=== PATIENT | female | born 1935 | race Caucasian/White ===

== ENCOUNTER 2017-11-03 16:50 | Inpatient (IN) | payer MEDICARE, MEDICAID ==
[~2017-11-03] VITALS: Ht 165.1 cm; Wt 95.5 kg
[2017-11-03] MEDS ORDERED: normal saline 1000ML IV soln IV ONE (17:25)
[2017-11-03] MEDS ORDERED: CefTRIAXone 2gm/D5W 50ml 50 ML IV ONE (17:40)
[2017-11-03] MEDS ORDERED: azithromycin/NS 500mg/250ml 250 ML IV ONE (17:40)
[2017-11-03 17:55] LABS: BASOPHILS % (AUTO) 0 % (0-1); EOSINOPHILS % (AUTO) 0 % (0-6); HEMATOCRIT 36.9 % (35.0-45.0); HEMOGLOBIN 12.7 g/dl (12.0-16.0); LYMPHOCYTES # (AUTO) 0.7 X10'3 (1.1-4.8); LYMPHOCYTES % (AUTO) 4.4 % (21-51); MEAN CORPUSCULAR HEMOGLOBIN 30.6 PG (27.0-31.0); MEAN CORPUSCULAR HGB CONC 34.3 % (33.0-36.5); MEAN CORPUSCULAR VOLUME 89.1 FL (78-98); MEAN PLATELET VOLUME 8.9 FL (7.4-10.4); MONOCYTES # (AUTO) 1.3 X10'3 (0-0.9); MONOCYTES % (AUTO) 8.3 % (2-12); NEUTROPHILS # (AUTO) 14.1 X10'3 (1.8-7.7); NEUTROPHILS % (AUTO) 87.3 % (42-75); PLATELET COUNT 240 X10'3 (140-440); RED BLOOD COUNT 4.14 X10'6 (4.20-5.60); RED CELL DISTRIBUTION WIDTH 15.6 % (11.5-14.5); WHITE BLOOD COUNT 16.1 X10'3 (4.5-11.0)
[2017-11-03 18:05] LABS: PARTIAL THROMBOPLASTIN TIME 34 SECONDS (22-32); PROTHROMBIN TIME 10.6 SECONDS (9.0-12.0)
[2017-11-03 18:10] LABS: ALANINE AMINOTRANSFERASE 25 U/L (12-78); ALBUMIN 3.7 G/DL (3.4-5.0); ALKALINE PHOSPHATASE 91 IU/L (46-116); ANION GAP 11 (8-16); ASPARTATE AMINO TRANSFERASE 21 U/L (10-37); BILIRUBIN,TOTAL 0.5 MG/DL (0.1-1.0); BLOOD UREA NITROGEN 16 MG/DL (7-18); BUN/CREATININE RATIO 15.1 (6.6-38.0); CHLORIDE 101 MMOL/L (99-107); CREATININE 1.06 MG/DL (0.40-0.90); GLUCOSE 122 MG/DL (70-104); MAGNESIUM 1.4 MG/DL (1.5-2.4); POTASSIUM 4.2 MMOL/L (3.5-5.1); SODIUM 137 MMOL/L (135-145); TOTAL CARBON DIOXIDE 25.1 MMOL/L (24-32); TOTAL PROTEIN 7.5 G/DL (6.4-8.2); eGFR 50 ML/MIN
[2017-11-03 18:30] LABS: CLARITY,URINE CLEAR (Clear); COLOR,URINE YELLOW (Yellow); GLUCOSE, URINE NEGATIVE (Neg); KETONES,URINE TRACE mg/dl (Neg); LEUKOCYTE ESTERASE ,URINE MODERATE (Neg); NITRITES, URINE POSITIVE (Neg); OCCULT BLOOD,URINE NEGATIVE (Neg); PROTEIN,URINE TRACE mg/dl (Neg)
[2017-11-03 18:31] LABS: UA COLLECTION TYPE VOIDED
[2017-11-03 18:35] LABS: BACTERIA,URINE 4+ /HPF (Neg); RBC,URINE 0-2 /HPF (0-2); WBC,URINE 50-100 /HPF (0-4)
[2017-11-03 18:36] LABS: MUCUS STRANDS NONE SEEN /LPF (Neg); SQUAMOUS EPITHELIAL CELL,UR FEW /LPF (FEW)
[2017-11-03] MEDS ORDERED: oseltamivir phos 75mg capsule PO ONE (19:45)
[2017-11-03] MEDS ORDERED: AMOX-422 PO (19:46)
[2017-11-03] MEDS ORDERED: ONDA4TAB12 PO (19:46)
[2017-11-03] MEDS ORDERED: TAM75C PO (19:46)
[2017-11-03] MEDS ORDERED: ATOR20TA66 PO (20:06)
[2017-11-03] MEDS ORDERED: LEVO75TA PO (20:06)
[2017-11-03] MEDS ORDERED: SERT100T PO (20:06)
[2017-11-03] MEDS ORDERED: MONT10TA21 PO (20:06)
[2017-11-03] MEDS ORDERED: OMEP40CA37 PO (20:06)
[2017-11-03] MEDS ORDERED: TRAM50TA2 PO (20:06)
[2017-11-03] MEDS ORDERED: normal saline 1000ml 1,000 ML IV SCH (20:47)
[2017-11-03] MEDS ORDERED: acetaminophen 325mg tablet PO PRN (20:50)
[2017-11-03] MEDS ORDERED: ondansetron/PF 4mg/2ml inj IV PRN (20:50)
[2017-11-03] MEDS ORDERED: magnesium hydroxide 30ml (MOM) UD suspension PO PRN (20:50)
[2017-11-03] MEDS ORDERED: mag hydrox/Alum hydrox/simeth 30ml oral suspension PO PRN (20:50)
[2017-11-03] MEDS: traMADol 50MG tablet PO PRN (22:39)
[2017-11-04 00:25] VITALS: BP 103/58
[2017-11-04 06:24] LABS: BASOPHILS % (AUTO) 0 % (0-1); EOSINOPHILS # (AUTO) 0.2 X10'3 (0-0.9); EOSINOPHILS % (AUTO) 1.5 % (0-6); HEMATOCRIT 31.3 % (35.0-45.0); HEMOGLOBIN 10.6 g/dl (12.0-16.0); LYMPHOCYTES # (AUTO) 1.2 X10'3 (1.1-4.8); LYMPHOCYTES % (AUTO) 7.9 % (21-51); MEAN CORPUSCULAR HEMOGLOBIN 30.6 PG (27.0-31.0); MEAN CORPUSCULAR HGB CONC 33.9 % (33.0-36.5); MEAN CORPUSCULAR VOLUME 90.2 FL (78-98); MEAN PLATELET VOLUME 9.4 FL (7.4-10.4); MONOCYTES # (AUTO) 1.5 X10'3 (0-0.9); MONOCYTES % (AUTO) 9.8 % (2-12); NEUTROPHILS # (AUTO) 12.2 X10'3 (1.8-7.7); NEUTROPHILS % (AUTO) 80.8 % (42-75); PLATELET COUNT 216 X10'3 (140-440); RED BLOOD COUNT 3.47 X10'6 (4.20-5.60); RED CELL DISTRIBUTION WIDTH 15.2 % (11.5-14.5); WHITE BLOOD COUNT 15.1 X10'3 (4.5-11.0)
[2017-11-04 06:40] LABS: ALANINE AMINOTRANSFERASE 19 U/L (12-78); ALBUMIN 2.9 G/DL (3.4-5.0); ALBUMIN/GLOBULIN RATIO 0.9 (1.1-1.5); ALKALINE PHOSPHATASE 65 IU/L (46-116); ANION GAP 7 (8-16); ASPARTATE AMINO TRANSFERASE 18 U/L (10-37); BILIRUBIN,TOTAL 0.4 MG/DL (0.1-1.0); BLOOD UREA NITROGEN 14 MG/DL (7-18); BUN/CREATININE RATIO 16.7 (6.6-38.0); CALCIUM 8.3 MG/DL (8.5-10.1); CHLORIDE 105 MMOL/L (99-107); CREATININE 0.84 MG/DL (0.40-0.90); GLUCOSE 120 MG/DL (70-104); POTASSIUM 3.8 MMOL/L (3.5-5.1); SODIUM 137 MMOL/L (135-145); TOTAL CARBON DIOXIDE 24.8 MMOL/L (24-32); TOTAL PROTEIN 6.1 G/DL (6.4-8.2); eGFR 65 ML/MIN
[2017-11-04 07:00] VITALS: BP 117/60
[2017-11-04] MEDS: montelukast 10mg tablet PO SCH (08:33)
[2017-11-04] MEDS: pantoprazole 40mg Tablet.DR PO SCH (08:34)
[2017-11-04] MEDS: levoTHYROXINE 75mcg tablet PO SCH (08:34)
[2017-11-04] MEDS: sertraline 50mg tablet PO SCH (08:34)
[2017-11-04] MEDS: atorvastatin 20mg tablet PO SCH (08:34)
[2017-11-04] MEDS: oseltamivir phos 75mg capsule PO SCH ×2 (08:36→20:49)
[2017-11-04] MEDS: heparin, porcine 5000 units/ml vial SQ SCH ×2 (08:36→20:51)
[2017-11-04] MEDS: CefTRIAXone/D5W-Rocephin 1gm 50 ML IV SCH (08:36)
[2017-11-04] MEDS: traMADol 50MG tablet PO PRN ×3 (08:45→21:24)
[2017-11-04 11:00] VITALS: BP 129/50
[2017-11-04 18:45] VITALS: BP 133/67
[2017-11-04 23:00] VITALS: BP 131/56
[2017-11-05 04:43] LABS: BASOPHILS % (AUTO) 0.1 % (0-1); EOSINOPHILS % (AUTO) 0 % (0-6); HEMATOCRIT 33.6 % (35.0-45.0); HEMOGLOBIN 11.3 g/dl (12.0-16.0); LYMPHOCYTES # (AUTO) 1.2 X10'3 (1.1-4.8); LYMPHOCYTES % (AUTO) 13.4 % (21-51); MEAN CORPUSCULAR HEMOGLOBIN 30.6 PG (27.0-31.0); MEAN CORPUSCULAR HGB CONC 33.7 % (33.0-36.5); MEAN CORPUSCULAR VOLUME 90.8 FL (78-98); MEAN PLATELET VOLUME 8.6 FL (7.4-10.4); MONOCYTES % (AUTO) 11.4 % (2-12); NEUTROPHILS # (AUTO) 6.7 X10'3 (1.8-7.7); NEUTROPHILS % (AUTO) 75.1 % (42-75); PLATELET COUNT 236 X10'3 (140-440); RED CELL DISTRIBUTION WIDTH 15.4 % (11.5-14.5); WHITE BLOOD COUNT 8.9 X10'3 (4.5-11.0)
[2017-11-05 05:02] LABS: ALANINE AMINOTRANSFERASE 23 U/L (12-78); ALBUMIN 2.9 G/DL (3.4-5.0); ALBUMIN/GLOBULIN RATIO 0.8 (1.1-1.5); ALKALINE PHOSPHATASE 70 IU/L (46-116); ANION GAP 10 (8-16); ASPARTATE AMINO TRANSFERASE 22 U/L (10-37); BILIRUBIN,TOTAL 0.3 MG/DL (0.1-1.0); BLOOD UREA NITROGEN 13 MG/DL (7-18); BUN/CREATININE RATIO 16.9 (6.6-38.0); CALCIUM 8.8 MG/DL (8.5-10.1); CHLORIDE 104 MMOL/L (99-107); CREATININE 0.77 MG/DL (0.40-0.90); GLUCOSE 113 MG/DL (70-104); POTASSIUM 3.8 MMOL/L (3.5-5.1); SODIUM 140 MMOL/L (135-145); TOTAL PROTEIN 6.7 G/DL (6.4-8.2); eGFR 72 ML/MIN
[2017-11-05 08:00] VITALS: BP 126/57
[2017-11-05] MEDS: CefTRIAXone/D5W-Rocephin 1gm 50 ML IV SCH (09:07)
[2017-11-05] MEDS: oseltamivir phos 75mg capsule PO SCH ×2 (09:07→19:47)
[2017-11-05] MEDS: heparin, porcine 5000 units/ml vial SQ SCH ×2 (09:08→19:47)
[2017-11-05] MEDS: montelukast 10mg tablet PO SCH (09:08)
[2017-11-05] MEDS: sertraline 50mg tablet PO SCH (09:08)
[2017-11-05] MEDS: atorvastatin 20mg tablet PO SCH (09:08)
[2017-11-05] MEDS: pantoprazole 40mg Tablet.DR PO SCH (09:08)
[2017-11-05] MEDS: levoTHYROXINE 75mcg tablet PO SCH (09:08)
[2017-11-05] MEDS: traMADol 50MG tablet PO PRN ×3 (09:11→21:52)
[2017-11-05 11:00] VITALS: BP 118/69
[2017-11-05 19:00] VITALS: BP 132/64
[2017-11-05 23:30] VITALS: BP 132/72
[2017-11-06] MEDS: traMADol 50MG tablet PO PRN ×2 (04:36→15:20)
[2017-11-06 05:33] LABS: BASOPHILS % (AUTO) 0.2 % (0-1); EOSINOPHILS # (AUTO) 0.1 X10'3 (0-0.9); EOSINOPHILS % (AUTO) 2.1 % (0-6); HEMOGLOBIN 10.8 g/dl (12.0-16.0); LYMPHOCYTES # (AUTO) 1.3 X10'3 (1.1-4.8); LYMPHOCYTES % (AUTO) 22.5 % (21-51); MEAN CORPUSCULAR HEMOGLOBIN 30.6 PG (27.0-31.0); MEAN CORPUSCULAR HGB CONC 33.8 % (33.0-36.5); MEAN CORPUSCULAR VOLUME 90.6 FL (78-98); MEAN PLATELET VOLUME 9.5 FL (7.4-10.4); MONOCYTES # (AUTO) 0.8 X10'3 (0-0.9); MONOCYTES % (AUTO) 13.1 % (2-12); NEUTROPHILS # (AUTO) 3.7 X10'3 (1.8-7.7); NEUTROPHILS % (AUTO) 62.1 % (42-75); PLATELET COUNT 215 X10'3 (140-440); RED BLOOD COUNT 3.53 X10'6 (4.20-5.60); RED CELL DISTRIBUTION WIDTH 15.1 % (11.5-14.5); WHITE BLOOD COUNT 5.9 X10'3 (4.5-11.0)
[2017-11-06 05:53] LABS: ALANINE AMINOTRANSFERASE 20 U/L (12-78); ALBUMIN 2.7 G/DL (3.4-5.0); ALBUMIN/GLOBULIN RATIO 0.7 (1.1-1.5); ALKALINE PHOSPHATASE 68 IU/L (46-116); ANION GAP 9 (8-16); ASPARTATE AMINO TRANSFERASE 20 U/L (10-37); BILIRUBIN,TOTAL 0.3 MG/DL (0.1-1.0); BLOOD UREA NITROGEN 13 MG/DL (7-18); BUN/CREATININE RATIO 18.1 (6.6-38.0); CALCIUM 8.6 MG/DL (8.5-10.1); CHLORIDE 106 MMOL/L (99-107); CREATININE 0.72 MG/DL (0.40-0.90); GLUCOSE 107 MG/DL (70-104); POTASSIUM 3.7 MMOL/L (3.5-5.1); SODIUM 141 MMOL/L (135-145); TOTAL CARBON DIOXIDE 26.5 MMOL/L (24-32); TOTAL PROTEIN 6.5 G/DL (6.4-8.2); eGFR 78 ML/MIN
[2017-11-06 07:00] VITALS: BP 129/62
[2017-11-06] MEDS: heparin, porcine 5000 units/ml vial SQ SCH ×2 (08:17→19:27)
[2017-11-06] MEDS: CefTRIAXone/D5W-Rocephin 1gm 50 ML IV SCH (08:17)
[2017-11-06] MEDS: oseltamivir phos 75mg capsule PO SCH ×2 (08:18→19:26)
[2017-11-06] MEDS: pantoprazole 40mg Tablet.DR PO SCH (08:18)
[2017-11-06] MEDS: montelukast 10mg tablet PO SCH (08:18)
[2017-11-06] MEDS: sertraline 50mg tablet PO SCH (08:18)
[2017-11-06] MEDS: levoTHYROXINE 75mcg tablet PO SCH (08:18)
[2017-11-06] MEDS: atorvastatin 20mg tablet PO SCH (08:18)
[2017-11-06 12:19] VITALS: BP 127/64
[2017-11-06] MEDS: lactobacillus rhamnosus 10,000 MMU CELLS/CAPSULE PO SCH (19:26)
[2017-11-06 20:00] VITALS: BP 140/84
[2017-11-07] VITALS: BP 136/85
[2017-11-07] MEDS: traMADol 50MG tablet PO PRN ×2 (02:29→19:38)
[2017-11-07 05:08] LABS: BASOPHILS % (AUTO) 0.4 % (0-1); EOSINOPHILS # (AUTO) 0.2 X10'3 (0-0.9); EOSINOPHILS % (AUTO) 3.3 % (0-6); HEMATOCRIT 33.4 % (35.0-45.0); HEMOGLOBIN 11.3 g/dl (12.0-16.0); LYMPHOCYTES # (AUTO) 1.8 X10'3 (1.1-4.8); LYMPHOCYTES % (AUTO) 30.3 % (21-51); MEAN CORPUSCULAR HEMOGLOBIN 30.7 PG (27.0-31.0); MEAN CORPUSCULAR HGB CONC 33.8 % (33.0-36.5); MEAN CORPUSCULAR VOLUME 90.8 FL (78-98); MEAN PLATELET VOLUME 9.1 FL (7.4-10.4); MONOCYTES # (AUTO) 0.7 X10'3 (0-0.9); MONOCYTES % (AUTO) 12.3 % (2-12); NEUTROPHILS # (AUTO) 3.2 X10'3 (1.8-7.7); NEUTROPHILS % (AUTO) 53.7 % (42-75); PLATELET COUNT 256 X10'3 (140-440); RED BLOOD COUNT 3.68 X10'6 (4.20-5.60)
[2017-11-07 05:11] LABS: ALANINE AMINOTRANSFERASE 23 U/L (12-78); ALBUMIN 2.8 G/DL (3.4-5.0); ALBUMIN/GLOBULIN RATIO 0.7 (1.1-1.5); ALKALINE PHOSPHATASE 72 IU/L (46-116); ANION GAP 8 (8-16); ASPARTATE AMINO TRANSFERASE 20 U/L (10-37); BILIRUBIN,TOTAL 0.3 MG/DL (0.1-1.0); BLOOD UREA NITROGEN 13 MG/DL (7-18); BUN/CREATININE RATIO 19.1 (6.6-38.0); CALCIUM 8.9 MG/DL (8.5-10.1); CHLORIDE 105 MMOL/L (99-107); CREATININE 0.68 MG/DL (0.40-0.90); GLUCOSE 107 MG/DL (70-104); SODIUM 142 MMOL/L (135-145); TOTAL CARBON DIOXIDE 29.2 MMOL/L (24-32); TOTAL PROTEIN 6.6 G/DL (6.4-8.2); eGFR 83 ML/MIN
[2017-11-07 07:35] VITALS: BP 160/81
[2017-11-07] MEDS: oseltamivir phos 75mg capsule PO SCH ×2 (09:53→20:29)
[2017-11-07] MEDS: levoTHYROXINE 75mcg tablet PO SCH (09:53)
[2017-11-07] MEDS: lactobacillus rhamnosus 10,000 MMU CELLS/CAPSULE PO SCH ×2 (09:53→20:29)
[2017-11-07] MEDS: sertraline 50mg tablet PO SCH (09:54)
[2017-11-07] MEDS: atorvastatin 20mg tablet PO SCH (09:54)
[2017-11-07] MEDS: montelukast 10mg tablet PO SCH (09:55)
[2017-11-07] MEDS: pantoprazole 40mg Tablet.DR PO SCH (09:55)
[2017-11-07] MEDS: heparin, porcine 5000 units/ml vial SQ SCH ×2 (09:57→20:31)
[2017-11-07] MEDS: CefTRIAXone/D5W-Rocephin 1gm 50 ML IV SCH (09:58)
[2017-11-07 11:54] VITALS: BP 160/76
[2017-11-07 20:00] VITALS: BP 165/77
[2017-11-07] MEDS ORDERED: cyclobenzaprine 10mg tablet PO ONE (22:40)
[2017-11-08] VITALS: BP 146/81
[2017-11-08 05:37] LABS: BASOPHILS % (AUTO) 0.3 % (0-1); EOSINOPHILS # (AUTO) 0.2 X10'3 (0-0.9); EOSINOPHILS % (AUTO) 2.5 % (0-6); HEMATOCRIT 36.5 % (35.0-45.0); HEMOGLOBIN 12.5 g/dl (12.0-16.0); LYMPHOCYTES # (AUTO) 2.4 X10'3 (1.1-4.8); LYMPHOCYTES % (AUTO) 28.5 % (21-51); MEAN CORPUSCULAR HEMOGLOBIN 30.9 PG (27.0-31.0); MEAN CORPUSCULAR HGB CONC 34.1 % (33.0-36.5); MEAN CORPUSCULAR VOLUME 90.6 FL (78-98); MEAN PLATELET VOLUME 8.2 FL (7.4-10.4); MONOCYTES # (AUTO) 0.9 X10'3 (0-0.9); MONOCYTES % (AUTO) 11.3 % (2-12); NEUTROPHILS # (AUTO) 4.8 X10'3 (1.8-7.7); NEUTROPHILS % (AUTO) 57.4 % (42-75); PLATELET COUNT 366 X10'3 (140-440); RED BLOOD COUNT 4.03 X10'6 (4.20-5.60); RED CELL DISTRIBUTION WIDTH 15.2 % (11.5-14.5); WHITE BLOOD COUNT 8.3 X10'3 (4.5-11.0)
[2017-11-08 05:57] LABS: ALANINE AMINOTRANSFERASE 25 U/L (12-78); ALBUMIN 3.2 G/DL (3.4-5.0); ALBUMIN/GLOBULIN RATIO 0.8 (1.1-1.5); ALKALINE PHOSPHATASE 79 IU/L (46-116); ANION GAP 9 (8-16); ASPARTATE AMINO TRANSFERASE 17 U/L (10-37); BILIRUBIN,TOTAL 0.3 MG/DL (0.1-1.0); BLOOD UREA NITROGEN 13 MG/DL (7-18); BUN/CREATININE RATIO 18.6 (6.6-38.0); CALCIUM 9.5 MG/DL (8.5-10.1); CHLORIDE 104 MMOL/L (99-107); GLUCOSE 107 MG/DL (70-104); POTASSIUM 3.8 MMOL/L (3.5-5.1); SODIUM 142 MMOL/L (135-145); TOTAL CARBON DIOXIDE 29.2 MMOL/L (24-32); TOTAL PROTEIN 7.4 G/DL (6.4-8.2); eGFR 81 ML/MIN
[2017-11-08 08:06] VITALS: BP 160/92
[2017-11-08] MEDS: atorvastatin 20mg tablet PO SCH (09:56)
[2017-11-08] MEDS: pantoprazole 40mg Tablet.DR PO SCH (09:56)
[2017-11-08] MEDS: traMADol 50MG tablet PO PRN ×2 (09:56→20:23)
[2017-11-08] MEDS: levoTHYROXINE 75mcg tablet PO SCH (09:56)
[2017-11-08] MEDS: lactobacillus rhamnosus 10,000 MMU CELLS/CAPSULE PO SCH ×2 (09:56→20:23)
[2017-11-08] MEDS: sertraline 50mg tablet PO SCH (09:57)
[2017-11-08] MEDS: oseltamivir phos 75mg capsule PO SCH ×2 (09:57→20:23)
[2017-11-08] MEDS: montelukast 10mg tablet PO SCH (09:57)
[2017-11-08] MEDS: CefTRIAXone/D5W-Rocephin 1gm 50 ML IV SCH (09:58)
[2017-11-08] MEDS: heparin, porcine 5000 units/ml vial SQ SCH ×2 (09:58→20:26)
[2017-11-08 11:18] VITALS: BP 171/89
[2017-11-08 20:00] VITALS: BP 126/52
[2017-11-09] VITALS: BP 122/56
[2017-11-09 07:08] VITALS: BP 147/73
[2017-11-09] MEDS: heparin, porcine 5000 units/ml vial SQ SCH (07:49)
[2017-11-09] MEDS: lactobacillus rhamnosus 10,000 MMU CELLS/CAPSULE PO SCH (07:49)
[2017-11-09] MEDS: pantoprazole 40mg Tablet.DR PO SCH (07:49)
[2017-11-09] MEDS: montelukast 10mg tablet PO SCH (07:49)
[2017-11-09] MEDS: CefTRIAXone/D5W-Rocephin 1gm 50 ML IV SCH (07:49)
[2017-11-09] MEDS: atorvastatin 20mg tablet PO SCH (07:49)
[2017-11-09] MEDS: sertraline 50mg tablet PO SCH (07:50)
[2017-11-09] MEDS: levoTHYROXINE 75mcg tablet PO SCH (07:51)
== END 2017-11-09 15:00 | DRG 871 ==
LOC: ER 16:50 → ED HOLD 20:47 → SUR 3N 23:55
PROVIDERS: ADMIT Internal Medicine; ATTEND Emergency Medicine
DX: A41.9 Sepsis, unspecified organism (principal); J18.1 Lobar pneumonia, unspecified organism; J10.08 Influenza due to other identified influenza virus with other specified pneumonia; N39.0 Urinary tract infection, site not specified; B96.1 Klebsiella pneumoniae [K. pneumoniae] as the cause of diseases classified elsewhere; F32.9 Major depressive disorder, single episode, unspecified; I25.10 Atherosclerotic heart disease of native coronary artery without angina pectoris; Z66 Do not resuscitate; I25.2 Old myocardial infarction; Z88.2 Allergy status to sulfonamides; Z88.8 Allergy status to other drugs, medicaments and biological substances; Z79.899 Other long term (current) drug therapy; Z87.891 Personal history of nicotine dependence
CPT/HCPCS: 36415; 71045; 80053; 81001; 83605; 83735; 84145; 85025; 85610; 85730; 87040; 87070; 87077; 87088; 87186; 87502; 87503; 93005; 96365; 96368; 97110; 97116; 97162; 97530; 99285; J0456; J0696; J1644; J2405; J7030

== ENCOUNTER 2018-04-27 02:03 | Inpatient (IN) | payer MEDICARE, MEDICAID ==
[~2018-04-27] VITALS: Ht 165.1 cm; Wt 90.9 kg
[~2018-04-27 02:03] MED LIST: ATOR20TA66 PO; LEVO75TA PO; MONT10TA21 PO; OMEP40CA37 PO; SERT100T PO; TRAM50TA2 PO
[2018-04-27] MEDS ORDERED: normal saline 1000ML IV soln IVB ONE (02:25)
[2018-04-27 03:03] LABS: BASOPHILS % (AUTO) 0.3 % (0-1); EOSINOPHILS % (AUTO) 0 % (0-6); HEMATOCRIT 35.1 % (35.0-45.0); HEMOGLOBIN 11.8 g/dl (12.0-16.0); LYMPHOCYTES % (AUTO) 10.9 % (21-51); MEAN CORPUSCULAR HEMOGLOBIN 30.6 PG (27.0-31.0); MEAN CORPUSCULAR HGB CONC 33.6 % (33.0-36.5); MEAN CORPUSCULAR VOLUME 90.9 FL (78-98); MEAN PLATELET VOLUME 9.3 FL (7.4-10.4); MONOCYTES # (AUTO) 1.1 X10'3 (0-0.9); MONOCYTES % (AUTO) 11.8 % (2-12); NEUTROPHILS # (AUTO) 6.9 X10'3 (1.8-7.7); PLATELET COUNT 312 X10'3 (140-440); RED BLOOD COUNT 3.86 X10'6 (4.20-5.60); RED CELL DISTRIBUTION WIDTH 15.1 % (11.5-14.5); WHITE BLOOD COUNT 8.9 X10'3 (4.5-11.0)
[2018-04-27 03:15] LABS: ALANINE AMINOTRANSFERASE 65 U/L (12-78); ALBUMIN 2.8 G/DL (3.4-5.0); ALBUMIN/GLOBULIN RATIO 0.7 (1.1-1.5); ALKALINE PHOSPHATASE 262 IU/L (46-116); ANION GAP 11 (8-16); ASPARTATE AMINO TRANSFERASE 68 U/L (10-37); BILIRUBIN,TOTAL 0.5 MG/DL (0.1-1.0); BLOOD UREA NITROGEN 27 MG/DL (7-18); CALCIUM 9.1 MG/DL (8.5-10.1); CHLORIDE 103 MMOL/L (99-107); CREATININE 1.08 MG/DL (0.40-0.90); GLUCOSE 114 MG/DL (70-104); SODIUM 137 MMOL/L (135-145); TOTAL CARBON DIOXIDE 23.2 MMOL/L (24-32); TOTAL PROTEIN 6.8 G/DL (6.4-8.2); eGFR 49 ML/MIN
[2018-04-27 03:23] LABS: CREATINE KINASE 512 U/L (26-192); MAGNESIUM 1.9 MG/DL (1.5-2.4)
[2018-04-27 03:28] LABS: CLARITY,URINE SLIGHTLY CLOUDY (Clear); COLOR,URINE YELLOW (Yellow); GLUCOSE, URINE NEGATIVE (Neg); KETONES,URINE TRACE mg/dl (Neg); LEUKOCYTE ESTERASE ,URINE MODERATE (Neg); NITRITES, URINE POSITIVE (Neg); OCCULT BLOOD,URINE SMALL (Neg); PROTEIN,URINE 30 mg/dl (Neg); UROBILINOGEN,URINE 0.2 E.U/dL (0.2-1.0)
[2018-04-27 03:31] LABS: UA COLLECTION TYPE CLN CATCH MIDSTREAM
[2018-04-27 03:36] LABS: BACTERIA,URINE 4+ /HPF (Neg); SQUAMOUS EPITHELIAL CELL,UR FEW /LPF (FEW); WBC,URINE 50-100 /HPF (0-4)
[2018-04-27 03:37] LABS: RBC,URINE 0-2 /HPF (0-2)
[2018-04-27] MEDS ORDERED: CefTRIAXone/D5W-Rocephin 1gm 50 ML IV ONE (03:45)
[2018-04-27] MEDS ORDERED: diphenhydrAMINE 50 mg/ml inj IV PRN (04:35)
[2018-04-27] MEDS ORDERED: acetaminophen 650mg rectal suppository RC PRN (04:35)
[2018-04-27] MEDS ORDERED: bisacodyl 10mg suppository rectal RC PRN (04:35)
[2018-04-27] MEDS ORDERED: morphine 2 MG/ML inj. syringe IV PRN ×2 (04:35)
[2018-04-27] MEDS ORDERED: diphenhydrAMINE 25mg capsule PO PRN (04:35)
[2018-04-27] MEDS ORDERED: acetaminophen 325mg tablet PO PRN ×2 (04:35)
[2018-04-27] MEDS ORDERED: metoclopramide 5 mg/ml inj IV PRN (04:35)
[2018-04-27] MEDS ORDERED: ondansetron/PF 4mg/2ml inj IV PRN (04:35)
[2018-04-27] MEDS ORDERED: mag hydrox/Alum hydrox/simeth 30ml oral suspension PO PRN (04:35)
[2018-04-27] MEDS ORDERED: magnesium hydroxide 30ml (MOM) UD suspension PO PRN (04:35)
[2018-04-27] MEDS ORDERED: HYDROcodone/acetaminophen 5mg/325mg tablet PO PRN (04:35)
[2018-04-27 04:55] LABS: PARTIAL THROMBOPLASTIN TIME 35 SECONDS (22-32); PROTHROMBIN TIME 10.2 SECONDS (9.0-12.0)
[2018-04-27] MEDS: dextrose 5%-1/2 normal saline 1,000 ML IV SCH ×2 (04:59→15:30)
[2018-04-27] MEDS ORDERED: LOSA25TA96 PO (05:00)
[2018-04-27 05:03] LABS: HEMOGLOBIN A1C 5.6 % (4.5-6.2)
[2018-04-27 05:10] LABS: PHOSPHORUS 2.9 MG/DL (2.3-4.5)
[2018-04-27] MEDS: docusate sod 100mg capsule PO SCH ×2 (08:39→20:32)
[2018-04-27] MEDS: heparin, porcine 5000 units/ml vial SQ SCH ×2 (08:39→20:30)
[2018-04-27] MEDS: HYDROcodone/acetaminophen 10/325mg tab PO PRN ×2 (08:44→15:35)
[2018-04-27] MEDS ORDERED: magnesium 4gm in 100ml NS 100 ML IV PRN (10:30)
[2018-04-27] MEDS ORDERED: potassium Cl 40MEQ/NS 500ml 500 ML IV PRN ×2 (10:30)
[2018-04-27] MEDS ORDERED: magnesium 1gm/100ml D5W IVPB 100 ML IV PRN (10:30)
[2018-04-27] MEDS ORDERED: potassium Cl 20 mEq SR tablet PO PRN ×2 (10:30)
[2018-04-27] MEDS ORDERED: magnesium Cl slow-release 64mg tablet PO PRN (10:30)
[2018-04-27] MEDS: CefTRIAXone/D5W-Rocephin 1gm 50 ML IV SCH (15:31)
[2018-04-27 19:30] VITALS: BP 130/60
[2018-04-27] MEDS: losartan 50mg tablet PO SCH (20:31)
[2018-04-27] MEDS: lactobacillus rhamnosus 10,000 MMU CELLS/CAPSULE PO SCH (20:32)
[2018-04-27] MEDS ORDERED: aspirin 325mg tablet PO ONE (21:00)
[2018-04-27] MEDS ORDERED: nitroGLYCERIN 0.2mg/hour patch TD ONE (21:00)
[2018-04-27] MEDS ORDERED: aspirin 81mg tablet.DR PO ONE (21:20)
[2018-04-28] VITALS: BP 121/57
[2018-04-28] MEDS: HYDROcodone/acetaminophen 10/325mg tab PO PRN ×3 (03:10→19:53)
[2018-04-28] MEDS: CefTRIAXone/D5W-Rocephin 1gm 50 ML IV SCH ×2 (03:21→15:24)
[2018-04-28] MEDS: dextrose 5%-1/2 normal saline 1,000 ML IV SCH ×3 (03:22→15:28)
[2018-04-28 05:19] LABS: BASOPHILS % (AUTO) 0.3 % (0-1); EOSINOPHILS # (AUTO) 0.1 X10'3 (0-0.9); EOSINOPHILS % (AUTO) 1.2 % (0-6); HEMATOCRIT 30.5 % (35.0-45.0); HEMOGLOBIN 10.4 g/dl (12.0-16.0); LYMPHOCYTES # (AUTO) 1.3 X10'3 (1.1-4.8); MEAN CORPUSCULAR HEMOGLOBIN 30.6 PG (27.0-31.0); MEAN CORPUSCULAR HGB CONC 34.1 % (33.0-36.5); MEAN CORPUSCULAR VOLUME 89.7 FL (78-98); MEAN PLATELET VOLUME 8.5 FL (7.4-10.4); MONOCYTES # (AUTO) 1.1 X10'3 (0-0.9); MONOCYTES % (AUTO) 12.2 % (2-12); NEUTROPHILS # (AUTO) 6.7 X10'3 (1.8-7.7); NEUTROPHILS % (AUTO) 72.3 % (42-75); PLATELET COUNT 311 X10'3 (140-440); WHITE BLOOD COUNT 9.3 X10'3 (4.5-11.0)
[2018-04-28 05:49] LABS: ALANINE AMINOTRANSFERASE 45 U/L (12-78); ALBUMIN 2.3 G/DL (3.4-5.0); ALBUMIN/GLOBULIN RATIO 0.6 (1.1-1.5); ALKALINE PHOSPHATASE 213 IU/L (46-116); ANION GAP 10 (8-16); ASPARTATE AMINO TRANSFERASE 35 U/L (10-37); BILIRUBIN,TOTAL 0.2 MG/DL (0.1-1.0); BLOOD UREA NITROGEN 15 MG/DL (7-18); BUN/CREATININE RATIO 17.9 (6.6-38.0); CALCIUM 8.4 MG/DL (8.5-10.1); CHLORIDE 104 MMOL/L (99-107); CREATININE 0.84 MG/DL (0.40-0.90); GLUCOSE 148 MG/DL (70-104); MAGNESIUM 1.7 MG/DL (1.5-2.4); PHOSPHORUS 2.2 MG/DL (2.3-4.5); POTASSIUM 3.6 MMOL/L (3.5-5.1); SODIUM 138 MMOL/L (135-145); TOTAL CARBON DIOXIDE 24.5 MMOL/L (24-32); eGFR 65 ML/MIN
[2018-04-28 07:19] VITALS: BP 156/72
[2018-04-28] MEDS: pantoprazole 40mg Tablet.DR PO SCH (08:42)
[2018-04-28] MEDS: atorvastatin 20mg tablet PO SCH (08:43)
[2018-04-28] MEDS: montelukast 10mg tablet PO SCH (08:43)
[2018-04-28] MEDS: levoTHYROXINE 75mcg tablet PO SCH (08:43)
[2018-04-28] MEDS: lactobacillus rhamnosus 10,000 MMU CELLS/CAPSULE PO SCH ×2 (08:43→19:51)
[2018-04-28] MEDS: sertraline 50mg tablet PO SCH (08:44)
[2018-04-28] MEDS: losartan 50mg tablet PO SCH (08:44)
[2018-04-28] MEDS: aspirin 81mg tablet.DR PO SCH (08:45)
[2018-04-28] MEDS: docusate sod 100mg capsule PO SCH ×2 (08:45→19:51)
[2018-04-28] MEDS: heparin, porcine 5000 units/ml vial SQ SCH ×2 (08:46→19:53)
[2018-04-28 11:34] VITALS: BP 147/68
[2018-04-28 18:00] VITALS: BP 110/80
[2018-04-28] MEDS ORDERED: nitroGLYCERIN 0.2mg/hour patch TD SCH (21:00)
[2018-04-28] MEDS: temazepam 15mg capsule PO PRN (21:47)
[2018-04-29] VITALS: BP 134/60
[2018-04-29] MEDS: dextrose 5%-1/2 normal saline 1,000 ML IV SCH ×2 (01:11→12:29)
[2018-04-29] MEDS: CefTRIAXone/D5W-Rocephin 1gm 50 ML IV SCH (02:24)
[2018-04-29 06:18] LABS: BASOPHILS % (AUTO) 0.5 % (0-1); EOSINOPHILS # (AUTO) 0.1 X10'3 (0-0.9); EOSINOPHILS % (AUTO) 1.3 % (0-6); HEMATOCRIT 32.6 % (35.0-45.0); HEMOGLOBIN 11.1 g/dl (12.0-16.0); LYMPHOCYTES # (AUTO) 1.1 X10'3 (1.1-4.8); MEAN CORPUSCULAR HEMOGLOBIN 30.5 PG (27.0-31.0); MEAN CORPUSCULAR VOLUME 89.8 FL (78-98); MEAN PLATELET VOLUME 8.7 FL (7.4-10.4); MONOCYTES # (AUTO) 1.2 X10'3 (0-0.9); MONOCYTES % (AUTO) 12.6 % (2-12); NEUTROPHILS # (AUTO) 6.8 X10'3 (1.8-7.7); NEUTROPHILS % (AUTO) 73.6 % (42-75); PLATELET COUNT 352 X10'3 (140-440); RED BLOOD COUNT 3.63 X10'6 (4.20-5.60); RED CELL DISTRIBUTION WIDTH 15.2 % (11.5-14.5); WHITE BLOOD COUNT 9.3 X10'3 (4.5-11.0)
[2018-04-29 06:56] LABS: ALANINE AMINOTRANSFERASE 34 U/L (12-78); ALBUMIN 2.4 G/DL (3.4-5.0); ALBUMIN/GLOBULIN RATIO 0.6 (1.1-1.5); ALKALINE PHOSPHATASE 201 IU/L (46-116); ANION GAP 10 (8-16); ASPARTATE AMINO TRANSFERASE 22 U/L (10-37); BILIRUBIN,TOTAL 0.3 MG/DL (0.1-1.0); BLOOD UREA NITROGEN 8 MG/DL (7-18); CALCIUM 8.6 MG/DL (8.5-10.1); CHLORIDE 105 MMOL/L (99-107); CREATININE 0.73 MG/DL (0.40-0.90); GLUCOSE 130 MG/DL (70-104); MAGNESIUM 1.6 MG/DL (1.5-2.4); PHOSPHORUS 2.7 MG/DL (2.3-4.5); POTASSIUM 3.6 MMOL/L (3.5-5.1); SODIUM 140 MMOL/L (135-145); TOTAL CARBON DIOXIDE 25.3 MMOL/L (24-32); TOTAL PROTEIN 6.5 G/DL (6.4-8.2); eGFR 77 ML/MIN
[2018-04-29 07:45] VITALS: BP 154/85
[2018-04-29] MEDS: lactobacillus rhamnosus 10,000 MMU CELLS/CAPSULE PO SCH ×2 (08:12→19:01)
[2018-04-29] MEDS: docusate sod 100mg capsule PO SCH ×2 (08:13→19:01)
[2018-04-29] MEDS: levoTHYROXINE 75mcg tablet PO SCH (08:13)
[2018-04-29] MEDS: sertraline 50mg tablet PO SCH (08:13)
[2018-04-29] MEDS: losartan 50mg tablet PO SCH (08:13)
[2018-04-29] MEDS: pantoprazole 40mg Tablet.DR PO SCH (08:13)
[2018-04-29] MEDS: montelukast 10mg tablet PO SCH (08:13)
[2018-04-29] MEDS: heparin, porcine 5000 units/ml vial SQ SCH ×2 (08:13→19:01)
[2018-04-29] MEDS: aspirin 81mg tablet.DR PO SCH (08:13)
[2018-04-29] MEDS: atorvastatin 20mg tablet PO SCH (08:13)
[2018-04-29 10:55] VITALS: BP 142/64
[2018-04-29] MEDS: cefepime 2g/NS 100ml ADVANTAGE 100 ML IV SCH ×2 (12:29→19:00)
[2018-04-29 18:00] VITALS: BP 150/71
[2018-04-29] MEDS: HYDROcodone/acetaminophen 10/325mg tab PO PRN (21:56)
[2018-04-29] MEDS: temazepam 15mg capsule PO PRN (21:56)
[2018-04-30] VITALS: BP 140/63
[2018-04-30] MEDS: dextrose 5%-1/2 normal saline 1,000 ML IV SCH ×2 (00:04→14:31)
[2018-04-30 06:06] LABS: BASOPHILS % (AUTO) 0.6 % (0-1); EOSINOPHILS # (AUTO) 0.2 X10'3 (0-0.9); EOSINOPHILS % (AUTO) 2.3 % (0-6); HEMATOCRIT 31.3 % (35.0-45.0); HEMOGLOBIN 10.6 g/dl (12.0-16.0); LYMPHOCYTES # (AUTO) 1.4 X10'3 (1.1-4.8); LYMPHOCYTES % (AUTO) 17.7 % (21-51); MEAN CORPUSCULAR HEMOGLOBIN 30.3 PG (27.0-31.0); MEAN CORPUSCULAR HGB CONC 33.7 % (33.0-36.5); MEAN CORPUSCULAR VOLUME 89.9 FL (78-98); MONOCYTES # (AUTO) 1.1 X10'3 (0-0.9); MONOCYTES % (AUTO) 13.6 % (2-12); NEUTROPHILS # (AUTO) 5.2 X10'3 (1.8-7.7); NEUTROPHILS % (AUTO) 65.8 % (42-75); PLATELET COUNT 425 X10'3 (140-440); RED BLOOD COUNT 3.48 X10'6 (4.20-5.60); RED CELL DISTRIBUTION WIDTH 15.4 % (11.5-14.5); WHITE BLOOD COUNT 7.8 X10'3 (4.5-11.0)
[2018-04-30 06:32] LABS: ALANINE AMINOTRANSFERASE 28 U/L (12-78); ALBUMIN 2.4 G/DL (3.4-5.0); ALBUMIN/GLOBULIN RATIO 0.6 (1.1-1.5); ALKALINE PHOSPHATASE 179 IU/L (46-116); ANION GAP 8 (8-16); ASPARTATE AMINO TRANSFERASE 20 U/L (10-37); BILIRUBIN,TOTAL 0.3 MG/DL (0.1-1.0); BLOOD UREA NITROGEN 7 MG/DL (7-18); BUN/CREATININE RATIO 9.7 (6.6-38.0); CALCIUM 8.8 MG/DL (8.5-10.1); CHLORIDE 107 MMOL/L (99-107); CREATININE 0.72 MG/DL (0.40-0.90); GLUCOSE 120 MG/DL (70-104); MAGNESIUM 1.8 MG/DL (1.5-2.4); PHOSPHORUS 3.3 MG/DL (2.3-4.5); POTASSIUM 3.7 MMOL/L (3.5-5.1); SODIUM 142 MMOL/L (135-145); TOTAL CARBON DIOXIDE 26.6 MMOL/L (24-32); TOTAL PROTEIN 6.2 G/DL (6.4-8.2); eGFR 78 ML/MIN
[2018-04-30] MEDS: HYDROcodone/acetaminophen 10/325mg tab PO PRN ×3 (06:48→19:27)
[2018-04-30 08:07] VITALS: BP 138/78
[2018-04-30] MEDS: aspirin 81mg tablet.DR PO SCH (08:15)
[2018-04-30] MEDS: levoTHYROXINE 75mcg tablet PO SCH (08:15)
[2018-04-30] MEDS: atorvastatin 20mg tablet PO SCH (08:15)
[2018-04-30] MEDS: heparin, porcine 5000 units/ml vial SQ SCH ×2 (08:16→19:03)
[2018-04-30] MEDS: docusate sod 100mg capsule PO SCH ×2 (08:16→19:03)
[2018-04-30] MEDS: pantoprazole 40mg Tablet.DR PO SCH (08:16)
[2018-04-30] MEDS: losartan 50mg tablet PO SCH (08:16)
[2018-04-30] MEDS: montelukast 10mg tablet PO SCH (08:16)
[2018-04-30] MEDS: lactobacillus rhamnosus 10,000 MMU CELLS/CAPSULE PO SCH ×2 (08:16→19:04)
[2018-04-30] MEDS: cefepime 2g/NS 100ml ADVANTAGE 100 ML IV SCH ×2 (08:17→19:03)
[2018-04-30] MEDS: sertraline 50mg tablet PO SCH (08:36)
[2018-04-30 11:45] VITALS: BP 157/84
[2018-04-30] MEDS: nystatin 15 GM powder TP SCH ×2 (13:52→20:57)
[2018-04-30 18:00] VITALS: BP 140/78
[2018-04-30] MEDS: temazepam 15mg capsule PO PRN (20:57)
[2018-05-01] VITALS: BP 150/67
[2018-05-01] MEDS: HYDROcodone/acetaminophen 10/325mg tab PO PRN ×4 (02:22→21:12)
[2018-05-01 05:57] LABS: BASOPHILS # (AUTO) 0.1 X10'3 (0-0.2); BASOPHILS % (AUTO) 0.6 % (0-1); EOSINOPHILS # (AUTO) 0.4 X10'3 (0-0.9); EOSINOPHILS % (AUTO) 3.4 % (0-6); HEMATOCRIT 31.8 % (35.0-45.0); HEMOGLOBIN 10.7 g/dl (12.0-16.0); LYMPHOCYTES # (AUTO) 1.7 X10'3 (1.1-4.8); LYMPHOCYTES % (AUTO) 16.8 % (21-51); MEAN CORPUSCULAR HEMOGLOBIN 30.5 PG (27.0-31.0); MEAN CORPUSCULAR HGB CONC 33.7 % (33.0-36.5); MEAN CORPUSCULAR VOLUME 90.5 FL (78-98); MEAN PLATELET VOLUME 7.9 FL (7.4-10.4); MONOCYTES # (AUTO) 0.9 X10'3 (0-0.9); MONOCYTES % (AUTO) 9.1 % (2-12); NEUTROPHILS # (AUTO) 7.2 X10'3 (1.8-7.7); NEUTROPHILS % (AUTO) 70.1 % (42-75); PLATELET COUNT 476 X10'3 (140-440); RED BLOOD COUNT 3.51 X10'6 (4.20-5.60); RED CELL DISTRIBUTION WIDTH 15.4 % (11.5-14.5); WHITE BLOOD COUNT 10.3 X10'3 (4.5-11.0)
[2018-05-01 06:39] LABS: ALANINE AMINOTRANSFERASE 19 U/L (12-78); ALBUMIN 2.3 G/DL (3.4-5.0); ALBUMIN/GLOBULIN RATIO 0.5 (1.1-1.5); ALKALINE PHOSPHATASE 169 IU/L (46-116); ANION GAP 9 (8-16); ASPARTATE AMINO TRANSFERASE 33 U/L (10-37); BILIRUBIN,TOTAL 0.4 MG/DL (0.1-1.0); BLOOD UREA NITROGEN 7 MG/DL (7-18); BUN/CREATININE RATIO 8.4 (6.6-38.0); CALCIUM 8.6 MG/DL (8.5-10.1); CHLORIDE 106 MMOL/L (99-107); CREATININE 0.83 MG/DL (0.40-0.90); GLUCOSE 111 MG/DL (70-104); MAGNESIUM 1.7 MG/DL (1.5-2.4); PHOSPHORUS 2.9 MG/DL (2.3-4.5); POTASSIUM 3.6 MMOL/L (3.5-5.1); SODIUM 142 MMOL/L (135-145); TOTAL PROTEIN 6.5 G/DL (6.4-8.2); eGFR 66 ML/MIN
[2018-05-01 07:13] VITALS: BP 147/77
[2018-05-01] MEDS: cefepime 2g/NS 100ml ADVANTAGE 100 ML IV SCH ×2 (08:01→21:09)
[2018-05-01] MEDS: docusate sod 100mg capsule PO SCH ×2 (08:01→21:11)
[2018-05-01] MEDS: atorvastatin 20mg tablet PO SCH (08:02)
[2018-05-01] MEDS: losartan 50mg tablet PO SCH (08:02)
[2018-05-01] MEDS: montelukast 10mg tablet PO SCH (08:02)
[2018-05-01] MEDS: aspirin 81mg tablet.DR PO SCH (08:02)
[2018-05-01] MEDS: lactobacillus rhamnosus 10,000 MMU CELLS/CAPSULE PO SCH ×2 (08:02→21:11)
[2018-05-01] MEDS: levoTHYROXINE 75mcg tablet PO SCH (08:02)
[2018-05-01] MEDS: sertraline 50mg tablet PO SCH (08:03)
[2018-05-01] MEDS: heparin, porcine 5000 units/ml vial SQ SCH ×2 (08:03→21:11)
[2018-05-01] MEDS: pantoprazole 40mg Tablet.DR PO SCH (08:03)
[2018-05-01] MEDS: nystatin 15 GM powder TP SCH ×3 (08:05→21:15)
[2018-05-01 12:34] VITALS: BP 138/80
[2018-05-01] MEDS: dextrose 5%-1/2 normal saline 1,000 ML IV SCH (14:06)
[2018-05-01 20:00] VITALS: BP 102/50
[2018-05-02] VITALS: BP 134/56
[2018-05-02] MEDS: dextrose 5%-1/2 normal saline 1,000 ML IV SCH (04:56)
[2018-05-02] MEDS: HYDROcodone/acetaminophen 10/325mg tab PO PRN ×4 (05:02→23:20)
[2018-05-02 05:42] LABS: BASOPHILS # (AUTO) 0.2 X10'3 (0-0.2); BASOPHILS % (AUTO) 1.3 % (0-1); EOSINOPHILS # (AUTO) 0.5 X10'3 (0-0.9); EOSINOPHILS % (AUTO) 3.7 % (0-6); HEMATOCRIT 33.9 % (35.0-45.0); HEMOGLOBIN 11.4 g/dl (12.0-16.0); LYMPHOCYTES # (AUTO) 2.1 X10'3 (1.1-4.8); LYMPHOCYTES % (AUTO) 16.1 % (21-51); MEAN CORPUSCULAR HEMOGLOBIN 30.6 PG (27.0-31.0); MEAN CORPUSCULAR HGB CONC 33.6 % (33.0-36.5); MEAN CORPUSCULAR VOLUME 91.1 FL (78-98); MEAN PLATELET VOLUME 8.3 FL (7.4-10.4); MONOCYTES # (AUTO) 1.1 X10'3 (0-0.9); MONOCYTES % (AUTO) 8.3 % (2-12); NEUTROPHILS # (AUTO) 9.2 X10'3 (1.8-7.7); NEUTROPHILS % (AUTO) 70.6 % (42-75); PLATELET COUNT 527 X10'3 (140-440); RED BLOOD COUNT 3.72 X10'6 (4.20-5.60); RED CELL DISTRIBUTION WIDTH 15.1 % (11.5-14.5); WHITE BLOOD COUNT 13.1 X10'3 (4.5-11.0)
[2018-05-02 05:58] LABS: ALANINE AMINOTRANSFERASE 36 U/L (12-78); ALBUMIN 2.5 G/DL (3.4-5.0); ALBUMIN/GLOBULIN RATIO 0.6 (1.1-1.5); ALKALINE PHOSPHATASE 181 IU/L (46-116); ANION GAP 9 (8-16); ASPARTATE AMINO TRANSFERASE 32 U/L (10-37); BILIRUBIN,TOTAL 0.3 MG/DL (0.1-1.0); BLOOD UREA NITROGEN 8 MG/DL (7-18); BUN/CREATININE RATIO 10.8 (6.6-38.0); CALCIUM 8.8 MG/DL (8.5-10.1); CHLORIDE 106 MMOL/L (99-107); CREATININE 0.74 MG/DL (0.40-0.90); GLUCOSE 111 MG/DL (70-104); MAGNESIUM 1.9 MG/DL (1.5-2.4); PHOSPHORUS 2.8 MG/DL (2.3-4.5); POTASSIUM 3.7 MMOL/L (3.5-5.1); SODIUM 143 MMOL/L (135-145); TOTAL PROTEIN 6.4 G/DL (6.4-8.2); eGFR 76 ML/MIN
[2018-05-02 08:00] VITALS: BP 142/75
[2018-05-02] MEDS: lactobacillus rhamnosus 10,000 MMU CELLS/CAPSULE PO SCH ×2 (08:18→19:25)
[2018-05-02] MEDS: levoTHYROXINE 75mcg tablet PO SCH (08:18)
[2018-05-02] MEDS: montelukast 10mg tablet PO SCH (08:18)
[2018-05-02] MEDS: sertraline 50mg tablet PO SCH (08:18)
[2018-05-02] MEDS: pantoprazole 40mg Tablet.DR PO SCH (08:18)
[2018-05-02] MEDS: aspirin 81mg tablet.DR PO SCH (08:18)
[2018-05-02] MEDS: heparin, porcine 5000 units/ml vial SQ SCH ×2 (08:18→19:24)
[2018-05-02] MEDS: atorvastatin 20mg tablet PO SCH (08:18)
[2018-05-02] MEDS: docusate sod 100mg capsule PO SCH ×2 (08:18→19:24)
[2018-05-02] MEDS: losartan 50mg tablet PO SCH (08:18)
[2018-05-02] MEDS: cefepime 2g/NS 100ml ADVANTAGE 100 ML IV SCH ×2 (08:19→19:26)
[2018-05-02] MEDS: nystatin 15 GM powder TP SCH ×3 (08:19→20:08)
[2018-05-02 12:15] VITALS: BP 127/70
[2018-05-02 18:00] VITALS: BP 142/82
[2018-05-02] MEDS: temazepam 15mg capsule PO PRN (23:20)
[2018-05-03] VITALS: BP 152/69
[2018-05-03 08:20] VITALS: BP 152/57
[2018-05-03] MEDS: HYDROcodone/acetaminophen 10/325mg tab PO PRN ×3 (08:32→21:03)
[2018-05-03] MEDS: montelukast 10mg tablet PO SCH (08:53)
[2018-05-03] MEDS: pantoprazole 40mg Tablet.DR PO SCH (08:53)
[2018-05-03] MEDS: sertraline 50mg tablet PO SCH (08:53)
[2018-05-03] MEDS: lactobacillus rhamnosus 10,000 MMU CELLS/CAPSULE PO SCH ×2 (08:54→21:02)
[2018-05-03] MEDS: levoTHYROXINE 75mcg tablet PO SCH (08:54)
[2018-05-03] MEDS: aspirin 81mg tablet.DR PO SCH (08:54)
[2018-05-03] MEDS: losartan 50mg tablet PO SCH (08:54)
[2018-05-03] MEDS: docusate sod 100mg capsule PO SCH ×2 (08:54→21:03)
[2018-05-03] MEDS: atorvastatin 20mg tablet PO SCH (08:54)
[2018-05-03] MEDS: cefepime 2g/NS 100ml ADVANTAGE 100 ML IV SCH ×2 (08:55→21:02)
[2018-05-03] MEDS: heparin, porcine 5000 units/ml vial SQ SCH ×2 (08:55→21:07)
[2018-05-03] MEDS: nystatin 15 GM powder TP SCH ×3 (08:55→21:08)
[2018-05-03 11:46] VITALS: BP 144/54
[2018-05-03 16:07] VITALS: BP 120/52
[2018-05-03 20:00] VITALS: BP 152/69
[2018-05-04] VITALS: BP 161/79
[2018-05-04] MEDS: nystatin 15 GM powder TP SCH (08:00)
[2018-05-04 08:07] VITALS: BP 146/73
[2018-05-04] MEDS: sertraline 50mg tablet PO SCH (09:05)
[2018-05-04] MEDS: heparin, porcine 5000 units/ml vial SQ SCH ×2 (09:05→19:38)
[2018-05-04] MEDS: lactobacillus rhamnosus 10,000 MMU CELLS/CAPSULE PO SCH ×2 (09:06→19:37)
[2018-05-04] MEDS: docusate sod 100mg capsule PO SCH ×2 (09:06→19:37)
[2018-05-04] MEDS: montelukast 10mg tablet PO SCH (09:06)
[2018-05-04] MEDS: aspirin 81mg tablet.DR PO SCH (09:06)
[2018-05-04] MEDS: losartan 50mg tablet PO SCH (09:06)
[2018-05-04] MEDS: atorvastatin 20mg tablet PO SCH (09:06)
[2018-05-04] MEDS: pantoprazole 40mg Tablet.DR PO SCH (09:06)
[2018-05-04] MEDS: levoTHYROXINE 75mcg tablet PO SCH (09:06)
[2018-05-04] MEDS: HYDROcodone/acetaminophen 10/325mg tab PO PRN ×3 (09:07→17:20)
[2018-05-04] MEDS: cefepime 2g/NS 100ml ADVANTAGE 100 ML IV SCH ×2 (09:07→19:37)
[2018-05-04 10:50] VITALS: BP 134/67
[2018-05-04 18:00] VITALS: BP 131/51
[2018-05-05] VITALS: BP 130/60
[2018-05-05] MEDS: HYDROcodone/acetaminophen 10/325mg tab PO PRN ×3 (00:52→12:53)
[2018-05-05 07:15] VITALS: BP 143/98
[2018-05-05] MEDS: atorvastatin 20mg tablet PO SCH (07:35)
[2018-05-05] MEDS: lactobacillus rhamnosus 10,000 MMU CELLS/CAPSULE PO SCH (07:36)
[2018-05-05] MEDS: montelukast 10mg tablet PO SCH (07:36)
[2018-05-05] MEDS: pantoprazole 40mg Tablet.DR PO SCH (07:36)
[2018-05-05] MEDS: aspirin 81mg tablet.DR PO SCH (07:36)
[2018-05-05] MEDS: sertraline 50mg tablet PO SCH (07:36)
[2018-05-05] MEDS: levoTHYROXINE 75mcg tablet PO SCH (07:36)
[2018-05-05] MEDS: losartan 50mg tablet PO SCH (07:36)
[2018-05-05] MEDS: heparin, porcine 5000 units/ml vial SQ SCH (07:37)
[2018-05-05] MEDS: cefepime 2g/NS 100ml ADVANTAGE 100 ML IV SCH (07:37)
[2018-05-05] MEDS: docusate sod 100mg capsule PO SCH (07:38)
[2018-05-05] MEDS ORDERED: metoprolol succinate 25mg (24-HOUR) SR. Tablet PO SCH (08:00)
[2018-05-05 12:17] VITALS: BP 110/75
== END 2018-05-05 14:14 | DRG 871 ==
LOC: ER 02:03 → ED HOLD 04:33 → EDBEDREQ 17:31 → SUR 3N 19:24
PROVIDERS: ADMIT Family Medicine; ATTEND Internal Medicine
DX: A41.51 Sepsis due to Escherichia coli [E. coli] (principal); I21.A1 Myocardial infarction type 2; N12 Tubulo-interstitial nephritis, not specified as acute or chronic; M62.82 Rhabdomyolysis; N17.9 Acute kidney failure, unspecified; E86.0 Dehydration; B96.20 Unspecified Escherichia coli [E. coli] as the cause of diseases classified elsewhere; D47.3 Essential (hemorrhagic) thrombocythemia; E03.9 Hypothyroidism, unspecified; F32.9 Major depressive disorder, single episode, unspecified; E78.5 Hyperlipidemia, unspecified; W18.39XA Other fall on same level, initial encounter; I10 Essential (primary) hypertension; J45.909 Unspecified asthma, uncomplicated; K21.9 Gastro-esophageal reflux disease without esophagitis; Z16.24 Resistance to multiple antibiotics; Z88.2 Allergy status to sulfonamides; Z91.018 Allergy to other foods; Z79.899 Other long term (current) drug therapy; Z87.01 Personal history of pneumonia (recurrent); Y93.89 Activity, other specified; Y92.89 Other specified places as the place of occurrence of the external cause; Y99.8 Other external cause status
CPT/HCPCS: 36415; 70450; 80053; 81001; 82550; 83036; 83605; 83735; 83880; 84100; 84443; 84484; 85025; 85610; 85730; 87040; 87070; 87077; 87088; 87186; 93005; 93306; 96360; 97116; 97161; 97530; 99285; J0692; J0696; J1644; J2270; J2405; J7030

== ENCOUNTER 2018-06-13 06:46 | Inpatient (IN) | payer MEDICARE, MEDICAID ==
[2018-06-07 17:26] LABS: CLARITY,URINE CLEAR (Clear); COLOR,URINE YELLOW (Yellow); GLUCOSE, URINE NEGATIVE (Neg); KETONES,URINE NEGATIVE (Neg); LEUKOCYTE ESTERASE ,URINE NEGATIVE (Neg); NITRITES, URINE NEGATIVE (Neg); OCCULT BLOOD,URINE NEGATIVE (Neg); PROTEIN,URINE NEGATIVE (Neg); UROBILINOGEN,URINE 0.2 E.U/dL (0.2-1.0)
[2018-06-07 17:30] LABS: UA COLLECTION TYPE CLN CATCH MIDSTREAM
[2018-06-07 17:35] LABS: BASOPHILS # (AUTO) 0.1 X10'3 (0-0.2); BASOPHILS % (AUTO) 0.5 % (0-1); EOSINOPHILS # (AUTO) 0.2 X10'3 (0-0.9); EOSINOPHILS % (AUTO) 2.3 % (0-6); LYMPHOCYTES # (AUTO) 2.5 X10'3 (1.1-4.8); LYMPHOCYTES % (AUTO) 22.9 % (21-51); MEAN CORPUSCULAR HEMOGLOBIN 30.9 PG (27.0-31.0); MEAN CORPUSCULAR HGB CONC 33.1 % (33.0-36.5); MEAN CORPUSCULAR VOLUME 93.2 FL (78-98); MEAN PLATELET VOLUME 9.2 FL (7.4-10.4); MONOCYTES # (AUTO) 0.6 X10'3 (0-0.9); MONOCYTES % (AUTO) 5.7 % (2-12); NEUTROPHILS # (AUTO) 7.4 X10'3 (1.8-7.7); NEUTROPHILS % (AUTO) 68.6 % (42-75); PRE OP HEMATOCRIT 39.3 % (35.0-45.0); PRE OP PLATELET COUNT 347 X10'3 (140-440); RED BLOOD COUNT 4.22 X10'6 (4.20-5.60); RED CELL DISTRIBUTION WIDTH 13.9 % (11.5-14.5)
[2018-06-07 17:43] LABS: PRE OP PROTIME 10.5 SECONDS (9.0-12.0)
[2018-06-07 17:50] LABS: ALBUMIN 3.7 G/DL (3.4-5.0); ALBUMIN/GLOBULIN RATIO 0.9 (1.1-1.5); ALKALINE PHOSPHATASE 80 IU/L (46-116); BLOOD UREA NITROGEN 15 MG/DL (7-18); BUN/CREATININE RATIO 17.6 (6.6-38.0); CALCIUM 9.4 MG/DL (8.5-10.1); CHLORIDE 103 MMOL/L (99-107); CREATININE 0.85 MG/DL (0.40-0.90); PRE OP ALT 15 U/L (30-65); PRE OP ANION GAP 7 (8-16); PRE OP AST 13 U/L (10-37); PRE OP BILIRUB, TOTAL 0.4 MG/DL (0.0-1.0); PRE OP GLUCOSE 106 MG/DL (70-104); PRE OP POTASSIUM 3.9 MMOL/L (3.4-5.1); PRE OP SODIUM 140 MMOL/L (135-145); TOTAL CARBON DIOXIDE 30.2 MMOL/L (24-32); TOTAL PROTEIN 7.7 G/DL (6.4-8.2); eGFR 64 ML/MIN
[2018-06-13] VITALS (18 sets, daily range): BP systolic 90–128; BP diastolic 36–73
[~2018-06-13] VITALS: Ht 167.6 cm; Wt 92.0 kg
[~2018-06-13 06:46] MED LIST changes: +ESTR0.6261 PO; +LOSA50TA3 PO; +NITR50CA PO; +PREVCR VG; -TRAM50TA2 PO; +acetaminophen 325mg tablet PO ONE; +cefazolin/dext.iso 2gm/100 ML IV ONE; +celeCOXIB 100mg capsule PO ONE; +famotidine 20mg tablet PO ONE; +gabapentin 300mg capsule PO ONE; +metoclopramide 5 mg/ml inj IV ONE; +oxyCODONE SR 10mg (sust. release) tab -2 tabs (20mg) PO ONE; +ringers solution, lacted 1,000 ML IV SCH; +tranexamic acid inj. 1,000 MG in normal saline 100ml IV soln 90 ML IV ONE; +vancomycin inj 1,500 MG in normal saline 300ml IV soln IV ONE
[2018-06-13] MEDS ORDERED: potassium cl 20mEq in 1/2 NS 1,000 ML IV SCH (07:06)
[2018-06-13] MEDS ORDERED: LIDOcaine 1% (10mg/ml) 2ml vial ONE (07:07)
[2018-06-13] MEDS ORDERED: HYDROcodone/acetaminophen 10/325mg tab PO PRN ×3 (07:10→14:20)
[2018-06-13] MEDS ORDERED: ondansetron/PF 4mg/2ml inj IV PRN ×4 (07:10→14:25)
[2018-06-13] MEDS ORDERED: acetaminophen 325mg tablet PO PRN ×2 (07:10→14:20)
[2018-06-13] MEDS ORDERED: HYDROmorphone 1 mg/ml syringe IV PRN ×4 (07:10→14:25)
[2018-06-13] MEDS ORDERED: bisacodyl 10mg suppository rectal RC PRN ×2 (07:10→14:25)
[2018-06-13] MEDS ORDERED: magnesium hydroxide 30ml (MOM) UD suspension PO PRN ×2 (07:10→14:25)
[2018-06-13] MEDS ORDERED: diphenhydrAMINE 25mg capsule PO PRN ×4 (07:10→14:20)
[2018-06-13] MEDS ORDERED: vancomycin 1,000mg inj ONE (07:57)
[2018-06-13] MEDS ORDERED: multivitamins, therapeutics tablet PO SCH (08:00)
[2018-06-13] MEDS ORDERED: levoTHYROXINE 75mcg tablet PO SCH (08:00)
[2018-06-13] MEDS ORDERED: cefazolin/dext.iso 2gm/100ml 100 ML IV SCH (08:00)
[2018-06-13] MEDS ORDERED: atorvastatin 20mg tablet PO SCH (08:00)
[2018-06-13] MEDS ORDERED: ascorbic acid 500mg tablet PO SCH (08:00)
[2018-06-13] MEDS ORDERED: non-formulary drug (Omeprazole (Prilosec) 1 CAP) PO SCH (08:00)
[2018-06-13] MEDS ORDERED: montelukast 10mg tablet PO SCH (08:00)
[2018-06-13] MEDS ORDERED: non-formulary drug (Sertraline Hcl (Zoloft) 1 TAB) PO SCH (08:00)
[2018-06-13] MEDS ORDERED: nitrofurantoin macrocrystal 50mg capsule PO SCH (08:00)
[2018-06-13] MEDS ORDERED: losartan 50mg tablet PO SCH (08:00)
[2018-06-13] MEDS ORDERED: gabapentin 300mg capsule PO SCH (08:00)
[2018-06-13] MEDS ORDERED: estrogen, conjugated 0.625mg tablet PO SCH (08:00)
[2018-06-13] MEDS ORDERED: aspirin 325mg tablet PO SCH (08:30)
[2018-06-13] MEDS ORDERED: ROPIVAcaine inj 250 MG, CloNIDine/PF inj 80 MCG, epiNEPHrine inj 0.5 MG in normal salin... IU ONE (09:11)
[2018-06-13] MEDS ORDERED: tetracaine 1% (10mg/ml) pres. free inj. ONE (09:16)
[2018-06-13] MEDS ORDERED: morphine /PF 1mg/ml 10ml inj. ONE (09:20)
[2018-06-13] MEDS ORDERED: fentaNYL/PF 50MCG/1 ML 2ML syringe ONE (09:20)
[2018-06-13] MEDS ORDERED: MIDAZolam 5mg/5ml vial ONE (09:20)
[2018-06-13] MEDS ORDERED: LIDOcaine 1%/PF 5ML 10 MG/ML VIAL ONE (10:00)
[2018-06-13] MEDS ORDERED: propofol inj 20 ML IV ONE (10:00)
[2018-06-13] MEDS ORDERED: ePHEDrine 50MG/ML INJ. ONE (10:27)
[2018-06-13] MEDS ORDERED: ringers solution, lacted 1,000 ML IV SCH (10:57)
[2018-06-13] MEDS ORDERED: naloxone 2mg/2ml inj 1.8 MG in normal saline 500ml IV soln 500 ML IV PRN (10:57)
[2018-06-13] MEDS ORDERED: HYDROmorphone inj. 0.5 MG/0.5 ML DISP.SYRIN IV PRN (11:00)
[2018-06-13] MEDS ORDERED: diphenhydrAMINE 50 mg/ml inj IV PRN (11:00)
[2018-06-13] MEDS ORDERED: morphine 4 MG/ML inj SYRINge IV PRN (11:00)
[2018-06-13] MEDS: potassium cl 20mEq in 1/2 NS 1,000 ML IV SCH ×2 (15:20→21:12)
[2018-06-13] MEDS: gabapentin 300mg capsule PO SCH ×2 (15:52→21:12)
[2018-06-13] MEDS: cefazolin/dext.iso 2gm/100ml 100 ML IV SCH (15:53)
[2018-06-13] MEDS: HYDROcodone/acetaminophen 10/325mg tab PO PRN (18:49)
[2018-06-13] MEDS: estrogens, conjug. vaginal cream 45gm tube VG SCH (21:00)
[2018-06-13] MEDS: atorvastatin 20mg tablet PO SCH (21:12)
[2018-06-13] MEDS: ascorbic acid 500mg tablet PO SCH (21:12)
[2018-06-13] MEDS: sennosides 8.6mg tablet PO SCH (21:12)
[2018-06-14] VITALS (7 sets, daily range): BP systolic 97–129; BP diastolic 45–70
[2018-06-14] MEDS: cefazolin/dext.iso 2gm/100ml 100 ML IV SCH ×2 (00:15→07:48)
[2018-06-14] MEDS: HYDROcodone/acetaminophen 10/325mg tab PO PRN ×4 (04:22→18:18)
[2018-06-14 05:43] LABS: BASOPHILS % (AUTO) 0.4 % (0-1); EOSINOPHILS # (AUTO) 0.2 X10'3 (0-0.9); EOSINOPHILS % (AUTO) 2.3 % (0-6); HEMATOCRIT 33.7 % (35.0-45.0); HEMOGLOBIN 11.2 g/dl (12.0-16.0); LYMPHOCYTES # (AUTO) 0.9 X10'3 (1.1-4.8); LYMPHOCYTES % (AUTO) 11.1 % (21-51); MEAN CORPUSCULAR HEMOGLOBIN 31.3 PG (27.0-31.0); MEAN CORPUSCULAR HGB CONC 33.2 % (33.0-36.5); MEAN CORPUSCULAR VOLUME 94.3 FL (78-98); MEAN PLATELET VOLUME 9.4 FL (7.4-10.4); MONOCYTES # (AUTO) 0.6 X10'3 (0-0.9); MONOCYTES % (AUTO) 7.9 % (2-12); NEUTROPHILS # (AUTO) 6.1 X10'3 (1.8-7.7); NEUTROPHILS % (AUTO) 78.3 % (42-75); PLATELET COUNT 253 X10'3 (140-440); RED BLOOD COUNT 3.58 X10'6 (4.20-5.60); RED CELL DISTRIBUTION WIDTH 13.8 % (11.5-14.5); WHITE BLOOD COUNT 7.8 X10'3 (4.5-11.0)
[2018-06-14 06:15] LABS: ANION GAP 6 (8-16); CHLORIDE 106 MMOL/L (99-107); POTASSIUM 4.3 MMOL/L (3.5-5.1); SODIUM 140 MMOL/L (135-145); TOTAL CARBON DIOXIDE 28.2 MMOL/L (24-32)
[2018-06-14] MEDS: potassium cl 20mEq in 1/2 NS 1,000 ML IV SCH ×3 (06:25→22:25)
[2018-06-14] MEDS ORDERED: aspirin 325mg tablet ONE (07:23)
[2018-06-14] MEDS: levoTHYROXINE 75mcg tablet PO SCH (07:40)
[2018-06-14] MEDS: pantoprazole 40mg Tablet.DR PO SCH (07:40)
[2018-06-14] MEDS: losartan 50mg tablet PO SCH (07:40)
[2018-06-14] MEDS: gabapentin 300mg capsule PO SCH ×3 (07:41→20:08)
[2018-06-14] MEDS: nitrofurantoin macrocrystal 50mg capsule PO SCH (07:41)
[2018-06-14] MEDS: estrogen, conjugated 0.625mg tablet PO SCH (07:41)
[2018-06-14] MEDS: montelukast 10mg tablet PO SCH (07:41)
[2018-06-14] MEDS: ascorbic acid 500mg tablet PO SCH ×2 (07:42→20:08)
[2018-06-14] MEDS: multivitamins, therapeutics tablet PO SCH (07:42)
[2018-06-14] MEDS: sertraline 50mg tablet PO SCH (07:42)
[2018-06-14] MEDS: aspirin 325mg tablet PO SCH (07:43)
[2018-06-14] MEDS ORDERED: sertraline 50mg tablet PO SCH (08:00)
[2018-06-14] MEDS ORDERED: ASPI-1 PO (08:46)
[2018-06-14] MEDS: sennosides 8.6mg tablet PO SCH (20:08)
[2018-06-14] MEDS: atorvastatin 20mg tablet PO SCH (20:08)
[2018-06-14] MEDS: estrogens, conjug. vaginal cream 45gm tube VG SCH (21:00)
[2018-06-15] MEDS: HYDROcodone/acetaminophen 10/325mg tab PO PRN ×2 (02:12→10:33)
[2018-06-15 05:43] LABS: BASOPHILS % (AUTO) 0.4 % (0-1); EOSINOPHILS # (AUTO) 0.3 X10'3 (0-0.9); EOSINOPHILS % (AUTO) 2.5 % (0-6); HEMATOCRIT 32.5 % (35.0-45.0); HEMOGLOBIN 10.8 g/dl (12.0-16.0); LYMPHOCYTES # (AUTO) 0.9 X10'3 (1.1-4.8); LYMPHOCYTES % (AUTO) 8.2 % (21-51); MEAN CORPUSCULAR HEMOGLOBIN 30.9 PG (27.0-31.0); MEAN CORPUSCULAR HGB CONC 33.1 % (33.0-36.5); MEAN CORPUSCULAR VOLUME 93.3 FL (78-98); MEAN PLATELET VOLUME 9.2 FL (7.4-10.4); MONOCYTES # (AUTO) 1.1 X10'3 (0-0.9); MONOCYTES % (AUTO) 9.9 % (2-12); NEUTROPHILS # (AUTO) 8.4 X10'3 (1.8-7.7); PLATELET COUNT 252 X10'3 (140-440); RED BLOOD COUNT 3.49 X10'6 (4.20-5.60); RED CELL DISTRIBUTION WIDTH 13.7 % (11.5-14.5); WHITE BLOOD COUNT 10.6 X10'3 (4.5-11.0)
[2018-06-15] MEDS: potassium cl 20mEq in 1/2 NS 1,000 ML IV SCH (06:25)
[2018-06-15] MEDS: gabapentin 300mg capsule PO SCH (08:03)
[2018-06-15] MEDS: nitrofurantoin macrocrystal 50mg capsule PO SCH (08:03)
[2018-06-15] MEDS: pantoprazole 40mg Tablet.DR PO SCH (08:03)
[2018-06-15] MEDS: levoTHYROXINE 75mcg tablet PO SCH (08:03)
[2018-06-15] MEDS: losartan 50mg tablet PO SCH (08:04)
[2018-06-15] MEDS: estrogen, conjugated 0.625mg tablet PO SCH (08:04)
[2018-06-15] MEDS: montelukast 10mg tablet PO SCH (08:04)
[2018-06-15] MEDS: sertraline 50mg tablet PO SCH (08:05)
[2018-06-15] MEDS: multivitamins, therapeutics tablet PO SCH (08:05)
[2018-06-15] MEDS: aspirin 325mg tablet PO SCH (08:05)
[2018-06-15] MEDS: ascorbic acid 500mg tablet PO SCH (08:05)
[2018-06-15 08:44] VITALS: BP 117/71
[2018-06-15 10:00] VITALS: BP 129/62
[2018-06-15 10:19] VITALS: BP 145/55
[2018-06-15 11:42] VITALS: BP 125/56
== END 2018-06-15 13:30 | disposition home or self-care (01) | DRG 470 ==
LOC: PAS IN 06:46 → EDSTATUS 09:45 → ORTHO 4S 12:40
PROVIDERS: ADMIT Orthopaedic Surgery; ATTEND Orthopaedic Surgery
PROC: 0SRB06Z Replacement of Left Hip Joint with Oxidized Zirconium on Polyethylene Synthetic Substitute, Open Approach (ICD-10-PCS; principal; 2018-06-13 09:26)
DX: M16.12 Unilateral primary osteoarthritis, left hip (principal); D62 Acute posthemorrhagic anemia; K21.9 Gastro-esophageal reflux disease without esophagitis; E03.9 Hypothyroidism, unspecified; E66.9 Obesity, unspecified; E78.5 Hyperlipidemia, unspecified; F32.9 Major depressive disorder, single episode, unspecified; I10 Essential (primary) hypertension; Z72.89 Other problems related to lifestyle; Z79.82 Long term (current) use of aspirin; Z79.899 Other long term (current) drug therapy; Z87.891 Personal history of nicotine dependence; Z82.49 Family history of ischemic heart disease and other diseases of the circulatory system; Z80.9 Family history of malignant neoplasm, unspecified; Z68.32 Body mass index [BMI] 32.0-32.9, adult
CPT/HCPCS: 36415; 71046; 72170; 80051; 80053; 81003; 84443; 85025; 85610; 85730; 86885; 86900; 86901; 87070; 97110; 97116; 97162; 97530; A4615; A7000; C1758; C1776; G0378; J0171; J0690; J0735; J2001; J2250; J2274; J2704; J2765; J2795; J3010; J3370; J3490; J7030; J7120